=== PATIENT | male | born 1985 | race Caucasian/White ===

== ENCOUNTER 2018-12-30 13:41 | Emergency (ER) | payer SELFPAY ==
[~2018-12-30] VITALS: Ht 177.8 cm; Wt 91.7 kg
[2018-12-30 13:44] VITALS: BP 133/80; PULSE 67; RESP 18; Ht 177.8 cm; Wt 91.7 kg
--- NOTE | 2018-12-30 14:37 | ERD ---
ER Documentation Chief Complaint Chief Complaint sent by pmd for x ray , chest wall pain s/p fall from 5 feet ht on monday HPI This is a 33-year-old male with a nonsignificant past medical history presents ED with chest wall pain status post fall that occurred 3 days ago. Patient states that he was climbing up a ladder when he actually fell off a ladder striking his chest on the roof. Patient states that he fell less than 5 feet. Patient's states that he was seen by his primary care physician and he is here today for an x-ray. Patient denies any shortness of breath, trouble breathing, fever, chills, and all other symptoms. ROS All systems reviewed and are negative except as per history of present illness. FmHx Family History: No diabetes Physical Exam Vitals Vital Signs Date Temp Pulse Resp B/P (MAP) Pulse Ox O2 O2 Flow FiO2 Time Delivery Rate 12/30/18 98.1 67 18 133/80 98 13:44 (97) Physical Exam Physical Exam Vitals signs: Reviewed by me. General: Well developed, well nourished, in no acute distress. Patient is awake and alert. Resting peacefully on stretcher Head: Normocephalic, atraumatic. Eyes: Normal conjunctiva, Pupils PERRLA, EOM intact grossly ENT: Pharynx is clear, Moist mucous membranes, external ears, nose and mouth normal Neck: Supple, no masses, lymphadenopathy or JVD Respiratory: Clear to auscultation bilaterally with no wheezing, rhonchi, rales, no distress Cardiovascular: RRR, no murmurs, rubs, or gallops Chest: Some redness noted to anterior chest wall, there is mild tenderness palpation along sternal area, no flail chest, no increased AP diameter Abdominal: Soft, non-tender, non-distended, no peritoneal signs : Deferred MSK: No edema, no unilateral swelling, 5/5 strength Back: No midline tenderness. No flank tenderness Neurologic: Alert and oriented, moving all extremities, normal speech, no focal weakness, no cerebellar signs. Normal mentation Skin: warm and dry, No rash Psych: Normal mood Procedures/MDM EKG, MONITORS, & DIAGNOSTIC IMAGING: EKG read by SARA: Rate/Rhythm: Regular rate and rhythm at a rate of 61 Intervals: Normal Impression: No evidence of ischemia or arrhythmia No ST elevation, no peak T waves, no widened QRS, no W[place] interval prolongation, no QT interval prolongation [place] [id number] Radiology Main Line: [phone] DIAGNOSTIC IMAGING REPORT Patient: SANA BUTTS : 1985 Age: 33 Sex: M MR #: [id number] DOS: 12/30/18 0000 Ordering MD: JULIANA DONALDSON PA-C Location: [facility] Room/Bed: PROCEDURE: XR Chest. CLINICAL INDICATION: Pain status post fall TECHNIQUE: PA and lateral views of the chest were obtained. COMPARISON: None. FINDINGS: No focal airspace opacification, pleural effusion or pneumothorax is seen. The cardiomediastinal silhouette is within normal limits for size. The osseous structures are unremarkable. IMPRESSION: Unremarkable chest x-ray series. RPTAT: HH .Vicki Gustafson MD, MD Date Time Electronically viewed and signed by .Vicki Gustasfon MD, on 12/30/2018 15:59 .G/ CC: JULIANA DONALDSON PA-C [phone] [place] [id number] Radiology Main Line: [phone] DIAGNOSTIC IMAGING REPORT Patient: SANA BUTTS : 1985 Age: 33 Sex: M MR #: [id number] DOS: 12/30/18 0000 Ordering MD: JULIANA DONALDSON PA-C Location: [facility] Room/Bed: PROCEDURE: XR sternum CLINICAL INDICATION: Pain following trauma TECHNIQUE: Two views of the sternum were obtained. COMPARISON: None. FINDINGS: The sternum demonstrates normal alignment. No acute fracture seen. The underlying lung parenchyma is unremarkable. IMPRESSION: Unremarkable x-rays of the sternum. No acute fracture identified. RPTAT: HH .Vicki Gustafson MD, MD Date Time Electronically viewed and signed by .Vicki Gustafson MD, MD on 12/30/2018 15:59 .G/ CC: JULIANA DONALDSON PA-C [phone] [place] [id number] Radiology Main Line: [phone] DIAGNOSTIC IMAGING REPORT Patient: SANA BUTTS : 1985 Age: 33 Sex: M MR #: [id number] DOS: 12/30/18 0000 Ordering MD: JULIANA DONALDSON PA-C Location: [facility] Room/Bed: PROCEDURE: XR bilateral rib series. CLINICAL INDICATION: Pain following injury. TECHNIQUE: 8 views of the bilateral rib cage and an AP view of the chest are available for review COMPARISON: None available FINDINGS: No acute fracture or dislocation is seen. No radiopaque foreign body is identified. No focal airspace opacity, pleural effusion or pneumothorax is seen. The cardiothymic silhouette is within normal limits for size. IMPRESSION: Unremarkable bilateral rib cage x-ray series. RPTAT: HH .Vicki Gustafson MD, MD Date Time Electronically viewed and signed by .Vicki Gustafson MD, MD on 12/30/2018 16:04 .G/ CC: JULIANA DONALDSON PA-C [phone] ER COURSE: The patient was offered medication for pain but declines The patient was stable throughout ED course. I kept the patient and/or family informed of laboratory and diagnostic imaging results throughout the emergency room course. The patient was promptly evaluated and a treatment plan was devised based on H&P and other data. This plan was discussed with the patient who agreed and had no further questions or concerns prior to discharge. MEDICAL DECISION MAKING: This is a 33-year-old male with a nonsignificant past medical history presents ED with chest wall pain status post fall that occurred 3 days ago. Patient states that he was climbing up a ladder when he actually fell off a ladder striking his chest on the roof. Patient states that he fell less than 5 feet. Patient's states that he was seen by his primary care physician and he is here today for an x-ray. X-rays of bilateral ribs, sternum and chest are unremarkable. This is likely chest contusion. Patient was given copies of all imaging done in the emergency department today. At this time there is no cardiopulmonary emergency. No evidence of cardiac contusion, STEMI, and STEMI, commotio cordis, pneumothorax, tension pneumothorax, among others. Vitals are stable patient can be managed with close outpatient follow-up. Advised patient follow-up with primary care in the next 48 hours. Return to ED with any worsening symptoms DISPOSITION PLAN: We discussed follow up with the patient's primary care doctor within 24 to 48 hours. Patient counseled regarding my diagnostic impression and care plan. Prior to discharge all questions answered. Pt agrees with treatment plan and understands strict return precautions. Precautionary instructions provided including instructions to return to the ER if not improving or for any worsening or changing symptoms or concerns. SPECIALIST FOLLOW UP RECOMMENDED: None Patient has been advised to follow up with primary care in 1-2 days. Disclaimer: Inadvertent spelling and grammatical errors are likely due to EHR/dictation software use and do not reflect on the overall quality of patient care. Also, please note that the electronic time recorded on this note does not necessarily reflect the actual time of the patient encounter. Departure Diagnosis: Primary Impression: Chest wall contusion Encounter type: initial encounter Laterality: unspecified laterality Qualified Codes: S20.219A - Contusion of unspecified front wall of thorax, initial encounter Condition: Stable Patient Instructions: Chest Wall Contusion Referrals: [facility] Additional Instructions: Patient advised to return to the ED immediately for new or worsening symptoms. Patient advised to follow up with primary care provider in the next 24-48 hours. Patient verbalized understanding and agrees with treatment plan and course of action. If patient has no primary care they may follow up with one of the community clinics listed on the following page or one of the options listed below [facility] [address] [place] [address] or [facility] [address] [place] [address] or [facility] [address] [place] [address] JULIANA DONALDSON PA-C Dec 30, 2018 14:37
[2018-12-30] MEDS ORDERED: IBUP-1542 PO (16:10)
== END 2018-12-30 16:22 | disposition home or self-care (01) ==
LOC: FTE 13:41
DX: S20.212A Contusion of left front wall of thorax, initial encounter (principal); R07.89 Other chest pain; S20.211A Contusion of right front wall of thorax, initial encounter; W11.XXXA Fall on and from ladder, initial encounter; Y92.9 Unspecified place or not applicable
CPT/HCPCS: 71046; 71110; 71120; 93005